=== PATIENT | male | born 1990 | race Two or more races ===

== ENCOUNTER → 2025-04-20 | Outpatient (CLI) | payer BC, SELFPAY ==
--- NOTE | 2025-04-20 14:30 | XR_ITS ---
Exam: MRI knee without contrast, right Date and time of exam: April 20, 2025: 1502 hours INDICATIONS: Medial knee pain post injury 2 years ago, instability swelling Technique: Multiple axial, coronal, and sagittal sections on the knee have been obtained. T2-Weighted sagittal, fat-suppressed images, TR 3,500, TE 62, T2 weighted coronal fat-saturated images, TR 3,500, TE 62 Proton density sagittal sections, TR 1800, TE 31. T-1 weighted coronal images, TR 524, TE 13.0 Findings: Medial meniscus anterior horn intact. Medial meniscus, body complex tears including horizontal linear tear. Posterior horn medial meniscus large horizontal linear tear communicating inferior articular surface. Lateral meniscus anterior horn is intact Lateral meniscus, body is intact Posterior horn lateral meniscus is intact Anterior cruciate ligament moderate sprain Posterior cruciate ligament appears intact. Knee effusion is moderate. Quadriceps and patellar tendons appear intact. There is no evidence of tendinosis. Inflammatory change or fracture of Hoffa's fat pad is not seen. Medial patellar facet demonstrates mild thinning. Lateral patellar facet cartilage demonstrates mild thinning. Trochlear cartilage demonstrates mild thinning. Marrow signal adequate. Medial collateral ligament appears intact. No meniscocapsular separation is seen. Illiotibial band and fibular collateral ligament are intact. Biceps femoris tendons appear intact. Medial femoral condylar articular cartilage demonstrates severe thinning. Lateral femoral condylar articular cartilage demonstrates moderate thinning. Tibial plateau cartilage demonstrates severe medial thinning. Impression: Complex tears body and posterior horn medial meniscus Moderate sprain anterior cruciate ligament
== END | disposition home or self-care (01) ==
LOC: SMRI 14:30
PROVIDERS: PCP Student in an Organized Health Care Education/Training Program; Referring Provider Student in an Organized Health Care Education/Training Program; Visit Provider Student in an Organized Health Care Education/Training Program
DX: S83.241A Other tear of medial meniscus, current injury, right knee, initial encounter (principal); S83.511A Sprain of anterior cruciate ligament of right knee, initial encounter; X58.XXXA Exposure to other specified factors, initial encounter
CPT/HCPCS: 73721